=== PATIENT | male | born 1970 | race Caucasian/White ===

== ENCOUNTER 2020-04-04 19:09 | Emergency (ER) | payer SELFPAY ==
[~2020-04-04] VITALS: Ht 172.7 cm; Wt 93.0 kg
== END 2020-04-04 20:22 | disposition left against medical advice (07) ==
LOC: ER 19:09
DX: M54.5 Low back pain (principal)
CPT/HCPCS: 72100; 99283-25

== ENCOUNTER 2020-04-06 09:52 | Emergency (ER) | payer OTHER ==
[~2020-04-06] VITALS: Ht 172.7 cm; Wt 93.0 kg
[2020-04-06] MEDS ORDERED: Robaxin-750750 MG PO (10:25)
[2020-04-06] MEDS ORDERED: KETO10 PO (10:25)
== END 2020-04-06 11:08 | disposition home or self-care (01) ==
LOC: ER 09:52
DX: M54.5 Low back pain (principal); W01.198A Fall on same level from slipping, tripping and stumbling with subsequent striking against other object, initial encounter; Y92.89 Other specified places as the place of occurrence of the external cause; Y99.0 Civilian activity done for income or pay
CPT/HCPCS: 96372; 99283-25; J1885